=== PATIENT | male | born 1980 | race Two or more races ===

== ENCOUNTER 2017-08-12 11:30 | Emergency (ER) | payer SELFPAY ==
[~2017-08-12] VITALS: Ht 185.4 cm; Wt 59.0 kg
[~2017-08-12 11:30] MED LIST: ALBIPROI INH; ALBU90OI INH; AMOX500 PO; BENZ100A PO; CEPH500 PO; CLIN150 PO; CODGUAEL PO; CRUTCH2 USE; CRUTCH3 USE; Cortisporin Ear10 ML BOTHEARS; Cortisporin Ear10 ML RIGHTEAR; ERYT500 PO; FLUT.05NI; HYDACE10B PO; HYDACE5 PO; HYDGUAL120 PO; IBUP200; IBUP200 PO; IBUP600; IBUP800 PO; META800 PO; MIRT15; MUPI2TO TOP; Miralax17 GM PO; NAPR500 PO; NEOPOLHCSU OT; NEOPOLHCSU RIGHTEAR; NYQUIL; NYST100TC TOP; OXYACE5T PO; PENVK500 PO; PRED20 PO; PRED5; PROM25 PO; RXNEOPOLHC AU; SUBOXONE 12 MG1 EACH SL; SULTRIDS PO; TRAM50 PO; Ultram50 MG PO; ZINC15G; Zithromax250 MG PO; Zofran Odt4 MG SL
[2017-08-12] MEDS ORDERED: Cheratussin AC118 ML PO (13:07)
[2017-08-12] MEDS ORDERED: ALBU90OI INH (13:15)
== END 2017-08-12 13:22 | disposition home or self-care (01) ==
LOC: ER 11:30
DX: J06.9 Acute upper respiratory infection, unspecified (principal); J45.909 Unspecified asthma, uncomplicated; F17.200 Nicotine dependence, unspecified, uncomplicated; Z88.8 Allergy status to other drugs, medicaments and biological substances; Z79.899 Other long term (current) drug therapy
CPT/HCPCS: 71046; 99283

== ENCOUNTER 2017-10-13 16:45 | Emergency (ER) | payer SELFPAY ==
[~2017-10-13] VITALS: Ht 188 cm; Wt 62.1 kg
[~2017-10-13 16:45] MED LIST changes: +Cheratussin AC118 ML PO
[2017-10-13] MEDS ORDERED: MIRT30 PO (17:09)
[2017-10-13] MEDS ORDERED: Robaxin500 MG PO (17:35)
[2017-10-13] MEDS ORDERED: NAPR550 PO (17:35)
== END 2017-10-13 17:42 | disposition home or self-care (01) ==
LOC: ER 16:45
DX: S20.211A Contusion of right front wall of thorax, initial encounter (principal); E03.9 Hypothyroidism, unspecified; F17.210 Nicotine dependence, cigarettes, uncomplicated; Z88.8 Allergy status to other drugs, medicaments and biological substances; Z79.899 Other long term (current) drug therapy; W51.XXXA Accidental striking against or bumped into by another person, initial encounter
CPT/HCPCS: 71101; 99283

== ENCOUNTER 2017-10-20 10:02 | Emergency (ER) | payer SELFPAY ==
[~2017-10-20] VITALS: Ht 185.4 cm; Wt 68.0 kg
[~2017-10-20 10:02] MED LIST changes: +MIRT30 PO; +NAPR550 PO; +Robaxin500 MG PO
[2017-10-20] MEDS ORDERED: KETO10 PO (10:49)
== END 2017-10-20 11:11 | disposition home or self-care (01) ==
LOC: ER 10:02
DX: S20.211A Contusion of right front wall of thorax, initial encounter (principal); F17.200 Nicotine dependence, unspecified, uncomplicated; Z88.8 Allergy status to other drugs, medicaments and biological substances; Z79.899 Other long term (current) drug therapy; X58.XXXA Exposure to other specified factors, initial encounter
CPT/HCPCS: 96372; 99283; J1885

== ENCOUNTER 2017-12-18 08:49 | Emergency (ER) | payer SELFPAY ==
[~2017-12-18] VITALS: Ht 185.4 cm; Wt 68.0 kg
[~2017-12-18 08:49] MED LIST changes: +KETO10 PO
[2017-12-18] MEDS ORDERED: SUBOXONE 8 MG-1 EACH SL (09:35)
[2017-12-18] MEDS ORDERED: ALBU90OI INH (10:14)
== END 2017-12-18 10:26 | disposition home or self-care (01) ==
LOC: ER 08:49
DX: J45.909 Unspecified asthma, uncomplicated (principal); Z77.22 Contact with and (suspected) exposure to environmental tobacco smoke (acute) (chronic); Z88.8 Allergy status to other drugs, medicaments and biological substances; Z79.899 Other long term (current) drug therapy; F17.200 Nicotine dependence, unspecified, uncomplicated
CPT/HCPCS: 71046; 94640; 99283-25; J1100

== ENCOUNTER 2017-12-27 09:44 | Emergency (ER) | payer SELFPAY ==
[~2017-12-27] VITALS: Ht 185.4 cm; Wt 70.3 kg
[~2017-12-27 09:44] MED LIST changes: +SUBOXONE 8 MG-1 EACH SL
[2017-12-27] MEDS ORDERED: Prednisone50 MG PO (13:22)
[2017-12-27] MEDS ORDERED: BUDE6HFA INH (13:23)
== END 2017-12-27 13:31 | disposition home or self-care (01) ==
LOC: ER 09:44
DX: J40 Bronchitis, not specified as acute or chronic (principal); F17.200 Nicotine dependence, unspecified, uncomplicated; Z88.8 Allergy status to other drugs, medicaments and biological substances; Z79.899 Other long term (current) drug therapy
CPT/HCPCS: 94644; 99283-25

== ENCOUNTER 2018-08-09 08:49 | Emergency (ER) | payer SELFPAY ==
[~2018-08-09] VITALS: Ht 185.4 cm; Wt 63.5 kg
[~2018-08-09 08:49] MED LIST changes: +BUDE6HFA INH; +Prednisone50 MG PO
[2018-08-09] MEDS ORDERED: ONDA4ODT MM (10:34)
== END 2018-08-09 10:37 | disposition home or self-care (01) ==
LOC: ER 08:49
DX: A08.4 Viral intestinal infection, unspecified (principal); F17.210 Nicotine dependence, cigarettes, uncomplicated; Z88.5 Allergy status to narcotic agent
CPT/HCPCS: 99282

== ENCOUNTER 2018-08-28 09:34 | Emergency (ER) | payer SELFPAY ==
[~2018-08-28] VITALS: Ht 182.9 cm; Wt 62.1 kg
[~2018-08-28 09:34] MED LIST changes: +ONDA4ODT MM
[2018-08-28] MEDS ORDERED: Robaxin500 MG PO (11:06)
[2018-08-28] MEDS ORDERED: KETO10 PO (11:06)
== END 2018-08-28 11:21 | disposition home or self-care (01) ==
LOC: ER 09:34
DX: M62.830 Muscle spasm of back (principal); F17.210 Nicotine dependence, cigarettes, uncomplicated; Z88.5 Allergy status to narcotic agent
CPT/HCPCS: 72100; 96372; 99283-25; J1885

== ENCOUNTER 2018-09-16 09:46 | Emergency (ER) | payer SELFPAY ==
[~2018-09-16] VITALS: Ht 185.4 cm; Wt 65.8 kg
[2018-09-16] MEDS ORDERED: CYCL10 PO (11:38)
== END 2018-09-16 11:43 | disposition home or self-care (01) ==
LOC: ER 09:46
DX: M25.552 Pain in left hip (principal); M54.5 Low back pain; Z88.5 Allergy status to narcotic agent; Z88.8 Allergy status to other drugs, medicaments and biological substances; Z79.899 Other long term (current) drug therapy; Z88.6 Allergy status to analgesic agent; F17.210 Nicotine dependence, cigarettes, uncomplicated
CPT/HCPCS: 72100; 72170; 96372; 99283-25; J1885

== ENCOUNTER 2019-03-03 09:48 | Emergency (ER) | payer SELFPAY ==
[~2019-03-03] VITALS: Ht 182.9 cm; Wt 65.8 kg
[~2019-03-03 09:48] MED LIST changes: +CYCL10 PO; +Nicoderm Cq1 EACH TOP; +Prednisone20 MG PO
[2019-03-03] MEDS ORDERED: BUPRENORPHINE HC8 MG SL (10:02)
[2019-03-03] MEDS ORDERED: HYDR1TAB94 PO ×2 (10:07→10:32)
[2019-03-03] MEDS ORDERED: LIDO700A20 TOP ×2 (10:07→10:30)
[2019-03-03] MEDS ORDERED: Zovirax800 MG PO ×2 (10:07→10:32)
[2019-03-03] MEDS ORDERED: METPRE4DP PO ×2 (10:07→10:30)
== END 2019-03-03 10:45 | disposition home or self-care (01) ==
LOC: ER 09:48
DX: B02.9 Zoster without complications (principal); F17.210 Nicotine dependence, cigarettes, uncomplicated; Z88.5 Allergy status to narcotic agent; Z88.1 Allergy status to other antibiotic agents; Z79.899 Other long term (current) drug therapy
CPT/HCPCS: 96372; 99283-25; J3301

== ENCOUNTER 2019-04-01 10:10 | Emergency (ER) | payer SELFPAY ==
[~2019-04-01] VITALS: Ht 182.9 cm; Wt 52.2 kg
[~2019-04-01 10:10] MED LIST changes: +BUPRENORPHINE HC8 MG SL; +HYDR1TAB94 PO; +LIDO700A20 TOP; +METPRE4DP PO; +Zovirax800 MG PO
[2019-04-01 10:44] LABS: BASOPHILS ABSOLUTE AUTO 0.04 K/mm3 (0.00-0.23); BASOPHILS PERCENT AUTO 1 % (0-2); EOSINOPHILS ABSOLUTE AUTO 0.08 K/mm3 (0.00-0.68); EOSINOPHILS PERCENT AUTO 1 % (0-6); Hematocrit 42.8 % (37.0-53.0); Hemoglobin 14.3 g/dL (13.5-17.5); IMMATURE GRAN ABSOLUTE AUTO 0.03 K/mm3 (0.00-0.10); IMMATURE GRAN PERCENT AUTO 0 % (0-1); LYMPHOCYTES ABSOLUTE AUTO 1.32 K/mm3 (0.84-5.20); LYMPHOCYTES PERCENT AUTO 18 % (21-46); MONOCYTES ABSOLUTE AUTO 0.61 K/mm3 (0.16-1.47); MONOCYTES PERCENT AUTO 8 % (4-13); Mean Corpuscular HGB 31.6 pg (26.0-34.0); Mean Corpuscular HGB Conc 33.4 g/dL (31.5-36.5); Mean Corpuscular Volume 95 fL (80-100); NEUTROPHILS ABSOLUTE AUTO 5.26 K/mm3 (1.96-9.15); NEUTROPHILS PERCENT AUTO 72 % (41-73); Platelet Count 168 K/mm3 (150-400); RDW Coefficient Variation 12.6 % (11.7-14.2); RDW Standard Deviation 43.4 fL (35.1-46.3); Red Blood Cell Count 4.53 M/mm3 (4.30-5.90); White Blood Cell Count 7.34 K/mm3 (4.00-11.30)
[2019-04-01 11:02] LABS: Alanine Aminotransfer (ALT/SGP 37 U/L (12-78); Albumin, Blood 4.3 g/dL (3.4-5.0); Albumin/Globulin Ratio 1.3 (0.8-1.8); Alk Phos 46 U/L (50-136); Anion Gap 7 mmol/L (6-16); Aspartate Aminotrans (AST/SGOT 23 U/L (12-37); Bilirubin, Total 0.5 mg/dL (0.1-1.0); Blood Urea Nitrogen 13 mg/dL (8-24); Bun/Creatinine Ratio 12.3 (12.0-20.0); CO2, Blood 25 mmol/L (21-32); Calcium, Blood 8.6 mg/dL (8.5-10.1); Chloride, Blood 111 mmol/L (98-108); Creatinine, Blood 1.06 mg/dL (0.60-1.20); Globulin, Blood 3.2 g/dL (2.2-4.0); Glomerular Filtration Rate >60 (60-); Glucose, Blood 115 mg/dL (70-99); Potassium, Blood 3.7 mmol/L (3.5-5.5); Sodium, Blood 143 mmol/L (136-145); Total Protein, Blood 7.5 g/dL (6.4-8.2)
[2019-04-01 12:02] LABS: Free Thyroxine 1.18 ng/dL (0.70-1.60)
[2019-04-01 12:04] LABS: Thyroid Stimulating Hormone 0.781 uIU/mL (0.360-4.800)
[2019-04-01] MEDS ORDERED: Prednisone20 MG PO (13:53)
[2019-04-02 07:08] LABS: HIV SCREEN 4TH GENERATION WRFX Non Reactive (Non Reactive)
== END 2019-04-01 14:07 | disposition home or self-care (01) ==
LOC: ER 10:10
PROVIDERS: Emergency Medicine
DX: R63.4 Abnormal weight loss (principal); Z88.5 Allergy status to narcotic agent; Z88.8 Allergy status to other drugs, medicaments and biological substances; Z79.899 Other long term (current) drug therapy; Z79.52 Long term (current) use of systemic steroids; F17.210 Nicotine dependence, cigarettes, uncomplicated
CPT/HCPCS: 36415; 71046; 80053; 84439; 84443; 85025; 87389; 93005; 93010; 99284-25; J7030

== ENCOUNTER 2019-04-12 16:52 | Emergency (ER) | payer SELFPAY ==
[~2019-04-12] VITALS: Ht 182.9 cm; Wt 54.4 kg
[2019-04-12] MEDS ORDERED: Polytrim Eye Dr10 ML TOP (18:07)
== END 2019-04-12 18:13 | disposition home or self-care (01) ==
LOC: ER 16:52
DX: H60.93 Unspecified otitis externa, bilateral (principal); H69.93 Unspecified Eustachian tube disorder, bilateral; H61.21 Impacted cerumen, right ear; Z88.5 Allergy status to narcotic agent; F17.210 Nicotine dependence, cigarettes, uncomplicated
CPT/HCPCS: 69210; 99282-25

== ENCOUNTER 2019-06-21 10:46 | Emergency (ER) | payer SELFPAY ==
[~2019-06-21] VITALS: Ht 182.9 cm; Wt 65.8 kg
[~2019-06-21 10:46] MED LIST changes: +Polytrim Eye Dr10 ML TOP
[2019-06-21] MEDS ORDERED: Amoxicillin500 MG PO ×2 (11:59→12:54)
[2019-06-21] MEDS ORDERED: Floxin10 ML RIGHTEAR (12:52)
== END 2019-06-21 12:53 | disposition home or self-care (01) ==
LOC: ER 10:46
DX: J02.9 Acute pharyngitis, unspecified (principal); F17.210 Nicotine dependence, cigarettes, uncomplicated; Z88.5 Allergy status to narcotic agent; Z88.8 Allergy status to other drugs, medicaments and biological substances; Z79.899 Other long term (current) drug therapy
CPT/HCPCS: 87081; 87430; 99283

== ENCOUNTER 2019-06-29 08:14 | Emergency (ER) | payer SELFPAY ==
[~2019-06-29] VITALS: Ht 182.9 cm; Wt 65.8 kg
[~2019-06-29 08:14] MED LIST changes: +Amoxicillin500 MG PO; +Floxin10 ML RIGHTEAR
[2019-07-02] MEDS ORDERED: NYST237S MT (12:27)
[2019-07-02] MEDS ORDERED: ONDA4ODT MM (12:27)
== END 2019-06-29 08:55 | disposition home or self-care (01) ==
LOC: ER 08:14
DX: Z77.098 Contact with and (suspected) exposure to other hazardous, chiefly nonmedicinal, chemicals (principal)
CPT/HCPCS: 99283

== ENCOUNTER 2019-08-28 14:32 | Emergency (ER) | payer SELFPAY ==
[~2019-08-28] VITALS: Ht 185.4 cm; Wt 63.5 kg
[~2019-08-28 14:32] MED LIST changes: +NYST237S MT; +ONDANSETRON ODT 4 MG; +Pseudoephedrine30 MG PO
[2019-08-28] MEDS ORDERED: KETO10 PO (16:00)
[2019-08-28] MEDS ORDERED: Robaxin-750750 MG PO (16:00)
== END 2019-08-28 16:09 | disposition home or self-care (01) ==
LOC: ER 14:32
DX: R07.89 Other chest pain (principal); J44.9 Chronic obstructive pulmonary disease, unspecified; Z88.5 Allergy status to narcotic agent; Z88.8 Allergy status to other drugs, medicaments and biological substances; Z79.899 Other long term (current) drug therapy
CPT/HCPCS: 71046; 93005; 93010; 96372; 99284-25; J1885

== ENCOUNTER 2020-04-18 08:02 | Emergency (ER) | payer OTHER ==
[~2020-04-18] VITALS: Ht 185.4 cm; Wt 59.0 kg
[~2020-04-18 08:02] MED LIST changes: +Robaxin-750750 MG PO
[2020-04-18] MEDS ORDERED: Norco 10-325 T1 EACH PO (09:40)
[2020-04-18] MEDS ORDERED: IBUP400 PO (09:40)
== END 2020-04-18 10:01 | disposition home or self-care (01) ==
LOC: ER 08:02
DX: R07.81 Pleurodynia (principal); J44.9 Chronic obstructive pulmonary disease, unspecified; F17.210 Nicotine dependence, cigarettes, uncomplicated; Z88.5 Allergy status to narcotic agent; Z88.8 Allergy status to other drugs, medicaments and biological substances; Z88.6 Allergy status to analgesic agent; Z79.891 Long term (current) use of opiate analgesic
CPT/HCPCS: 71046; 99283-25

== ENCOUNTER → 2020-06-12 | Outpatient (CLI) | payer OTHER ==
[~2020-06-12] MED LIST changes: +DICY20 PO; +IBUP400 PO; +NAPROXEN250 M1 PO; +Norco 10-325 T1 EACH PO; +SYMBICORT 160-4.6 GM; +ZENPEP DR 10,01 EACH PO
== END | disposition home or self-care (01) ==
LOC: LAB SHORT 13:15 → PLD 13:15
DX: J02.9 Acute pharyngitis, unspecified (principal)
CPT/HCPCS: 87081

== ENCOUNTER 2020-06-20 10:09 | Emergency (ER) | payer OTHER ==
[~2020-06-20] VITALS: Ht 185.4 cm; Wt 54.4 kg
[~2020-06-20 10:09] MED LIST changes: -DICY20 PO; -NAPROXEN250 M1 PO; -SYMBICORT 160-4.6 GM; -ZENPEP DR 10,01 EACH PO
[2020-06-20 10:37] LABS: BASOPHILS ABSOLUTE AUTO 0.05 K/mm3 (0.00-0.23); BASOPHILS PERCENT AUTO 1 % (0-2); EOSINOPHILS ABSOLUTE AUTO 0.62 K/mm3 (0.00-0.68); EOSINOPHILS PERCENT AUTO 7 % (0-6); Hematocrit 45.1 % (37.0-53.0); Hemoglobin 15.2 g/dL (13.5-17.5); IMMATURE GRAN ABSOLUTE AUTO 0.05 K/mm3 (0.00-0.10); IMMATURE GRAN PERCENT AUTO 1 % (0-1); LYMPHOCYTES ABSOLUTE AUTO 1.31 K/mm3 (0.84-5.20); LYMPHOCYTES PERCENT AUTO 14 % (21-46); MONOCYTES ABSOLUTE AUTO 0.74 K/mm3 (0.16-1.47); MONOCYTES PERCENT AUTO 8 % (4-13); Mean Corpuscular HGB Conc 33.7 g/dL (31.5-36.5); Mean Corpuscular Volume 95 fL (80-100); Mean Platelet Volume 10.2 fL (9.1-12.4); NEUTROPHILS ABSOLUTE AUTO 6.33 K/mm3 (1.96-9.15); NEUTROPHILS PERCENT AUTO 70 % (41-73); Platelet Count 149 K/mm3 (150-400); RDW Standard Deviation 42.1 fL (35.1-46.3); Red Blood Cell Count 4.75 M/mm3 (4.30-5.90)
[2020-06-20 10:58] LABS: Alanine Aminotransfer (ALT/SGP 38 U/L (12-78); Albumin, Blood 4.7 g/dL (3.4-5.0); Albumin/Globulin Ratio 1.3 (0.8-1.8); Alk Phos 68 U/L (50-136); Anion Gap 5 mmol/L (6-16); Aspartate Aminotrans (AST/SGOT 28 U/L (12-37); Bilirubin, Total 0.3 mg/dL (0.1-1.0); Blood Urea Nitrogen 12 mg/dL (8-24); Bun/Creatinine Ratio 13.1 (12.0-20.0); CO2, Blood 27 mmol/L (21-32); Calcium, Blood 9.3 mg/dL (8.5-10.1); Chloride, Blood 107 mmol/L (98-108); Creatinine, Blood 0.91 mg/dL (0.60-1.20); Globulin, Blood 3.5 g/dL (2.2-4.0); Glomerular Filtration Rate >60 (60-); Glucose, Blood 99 mg/dL (70-99); Potassium, Blood 3.6 mmol/L (3.5-5.5); Sodium, Blood 139 mmol/L (136-145); Total Protein, Blood 8.2 g/dL (6.4-8.2)
[2020-06-20 11:04] LABS: Source, Urine Clean Catch
[2020-06-20 11:21] LABS: Appearance, Urine Hazy (Clear); Bacteria Rare /hpf; Bilirubin, Urine Neg (Neg); Blood, Urine Neg (Neg); Color, Urine Yellow (P-Yellow); Glucose Qualitative, Urine Neg (Neg); Ketones, Urine 1+ (Neg); Leukocyte Esterase, Urine 1+ (Neg); Nitrite, Urine Neg (Neg); Protein, Urine 2+ (Neg); Red Blood Cells, Urine Not Seen /hpf (0-2); Specific Gravity, Urine 1.025 (1.003-1.022); Squamous Epithelial Cells Rare /hpf (Few); Urobilinogen, Urine NORM (Normal); White Blood Cells, Urine 0-2 /hpf (0-5)
[2020-06-20] MEDS ORDERED: DICY20 PO (13:38)
[2020-06-20] MEDS ORDERED: PROM25 PO (13:38)
== END 2020-06-20 13:44 | disposition home or self-care (01) ==
LOC: ER 10:09
PROVIDERS: Emergency Medicine
DX: R11.2 Nausea with vomiting, unspecified (principal); R10.9 Unspecified abdominal pain; G89.29 Other chronic pain; J44.9 Chronic obstructive pulmonary disease, unspecified; F17.210 Nicotine dependence, cigarettes, uncomplicated; Z88.5 Allergy status to narcotic agent; Z88.6 Allergy status to analgesic agent; Z79.891 Long term (current) use of opiate analgesic
CPT/HCPCS: 36415; 80053; 81001; 83690; 85025; 87086; 96374; 99284-25; J2550; J7120

== ENCOUNTER 2020-08-09 15:15 | Emergency (ER) | payer OTHER ==
[~2020-08-09] VITALS: Ht 182.9 cm; Wt 53.1 kg
[~2020-08-09 15:15] MED LIST changes: +DICY20 PO
[2020-08-09 15:51] LABS: BASOPHILS ABSOLUTE AUTO 0.05 K/mm3 (0.00-0.23); BASOPHILS PERCENT AUTO 1 % (0-2); EOSINOPHILS ABSOLUTE AUTO 0.34 K/mm3 (0.00-0.68); EOSINOPHILS PERCENT AUTO 5 % (0-6); Hematocrit 47.5 % (37.0-53.0); Hemoglobin 16.5 g/dL (13.5-17.5); IMMATURE GRAN ABSOLUTE AUTO 0.04 K/mm3 (0.00-0.10); IMMATURE GRAN PERCENT AUTO 1 % (0-1); LYMPHOCYTES ABSOLUTE AUTO 1.59 K/mm3 (0.84-5.20); LYMPHOCYTES PERCENT AUTO 23 % (21-46); MONOCYTES ABSOLUTE AUTO 0.51 K/mm3 (0.16-1.47); MONOCYTES PERCENT AUTO 7 % (4-13); Mean Corpuscular HGB 31.5 pg (26.0-34.0); Mean Corpuscular HGB Conc 34.7 g/dL (31.5-36.5); Mean Corpuscular Volume 91 fL (80-100); Mean Platelet Volume 10.6 fL (9.1-12.4); NEUTROPHILS ABSOLUTE AUTO 4.36 K/mm3 (1.96-9.15); NEUTROPHILS PERCENT AUTO 63 % (41-73); Platelet Count 152 K/mm3 (150-400); RDW Coefficient Variation 11.9 % (11.7-14.2); RDW Standard Deviation 40.1 fL (35.1-46.3); Red Blood Cell Count 5.23 M/mm3 (4.30-5.90); White Blood Cell Count 6.89 K/mm3 (4.00-11.30)
[2020-08-09] MEDS ORDERED: ONDA4ODT MM (16:12)
[2020-08-09] MEDS ORDERED: ZENPEP DR 10,01 EACH PO (16:12)
[2020-08-09 16:16] LABS: Source, Urine Clean Catch
[2020-08-09 16:24] LABS: Appearance, Urine Hazy (Clear); Bilirubin, Urine Neg (Neg); Blood, Urine Neg (Neg); Color, Urine Yellow (P-Yellow); Glucose Qualitative, Urine Neg (Neg); Ketones, Urine Neg (Neg); Leukocyte Esterase, Urine Neg (Neg); Nitrite, Urine Neg (Neg); Protein, Urine 1+ (Neg); Specific Gravity, Urine 1.015 (1.003-1.022); Urobilinogen, Urine NORM (Normal); pH, Urine 6.5 (5.0-8.0)
[2020-08-09 16:35] LABS: Bacteria Many /hpf; Red Blood Cells, Urine 0-2 /hpf (0-2); Squamous Epithelial Cells Not Seen /hpf (Few); White Blood Cells, Urine 0-2 /hpf (0-5)
[2020-08-09 16:36] LABS: Calcium Oxalate Crystals Rare /hpf
[2020-08-09 17:05] LABS: Alanine Aminotransfer (ALT/SGP 28 U/L (12-78); Albumin, Blood 3.7 g/dL (3.4-5.0); Albumin/Globulin Ratio 1.3 (0.8-1.8); Alk Phos 48 U/L (50-136); Anion Gap 2 mmol/L (6-16); Aspartate Aminotrans (AST/SGOT 16 U/L (12-37); Bilirubin, Total 0.3 mg/dL (0.1-1.0); Blood Urea Nitrogen 10 mg/dL (8-24); Bun/Creatinine Ratio 11.2 (12.0-20.0); CO2, Blood 30 mmol/L (21-32); Calcium, Blood 8.8 mg/dL (8.5-10.1); Chloride, Blood 106 mmol/L (98-108); Globulin, Blood 2.9 g/dL (2.2-4.0); Glomerular Filtration Rate >60 (60-); Glucose, Blood 82 mg/dL (70-99); Potassium, Blood 3.4 mmol/L (3.5-5.5); Sodium, Blood 138 mmol/L (136-145); Total Protein, Blood 6.6 g/dL (6.4-8.2)
[2020-08-09] MEDS ORDERED: NAPROXEN250 M1 PO (17:52)
== END 2020-08-09 18:17 | disposition home or self-care (01) ==
LOC: ER 15:15
PROVIDERS: Physician Assistant
DX: N20.2 Calculus of kidney with calculus of ureter (principal); J44.9 Chronic obstructive pulmonary disease, unspecified; F17.210 Nicotine dependence, cigarettes, uncomplicated; Z88.5 Allergy status to narcotic agent; Z88.8 Allergy status to other drugs, medicaments and biological substances; Z88.6 Allergy status to analgesic agent; Z79.899 Other long term (current) drug therapy
CPT/HCPCS: 36415; 74177; 80053; 81001; 83690; 85025; 87086; 96374-59; 96375; 99284-25; J1630; J1885; Q9967

== ENCOUNTER 2020-08-27 08:33 | Day surgery (SDC) | payer OTHER ==
[~2020-08-27] VITALS: Ht 182.9 cm; Wt 55.7 kg
[~2020-08-27 08:33] MED LIST changes: +NAPROXEN250 M1 PO; +ZENPEP DR 10,01 EACH PO
[2020-08-27] MEDS ORDERED: SYMBICORT 160-4.6 GM (08:58)
--- NOTE | 2020-08-27 10:50 | NUR ---
08/27/20 1050 Destiny Cantu LATE ENTRY PATIENT HAD POOR PREP, WAS ONL ABLE TO REACH THE MID TRANSVERSE COLON. PROCEDURE ABORTED.
== END 2020-08-27 10:43 | disposition home or self-care (01) ==
LOC: ORSCSDS 08:33
PROVIDERS: Internal Medicine Gastroenterology
PROC: 0DJD8ZZ Inspection of Lower Intestinal Tract, Via Natural or Artificial Opening Endoscopic (ICD-10-PCS; principal; 2020-08-27 09:45)
PROC: 0DB68ZX Excision of Stomach, Via Natural or Artificial Opening Endoscopic, Diagnostic (ICD-10-PCS; principal; 2020-08-27 09:45)
PROC: 0DB98ZX Excision of Duodenum, Via Natural or Artificial Opening Endoscopic, Diagnostic (ICD-10-PCS; principal; 2020-08-27 09:45)
DX: R63.4 Abnormal weight loss (principal); R10.84 Generalized abdominal pain; R53.82 Chronic fatigue, unspecified; R11.2 Nausea with vomiting, unspecified; R53.1 Weakness; R19.4 Change in bowel habit; F17.210 Nicotine dependence, cigarettes, uncomplicated; Z79.899 Other long term (current) drug therapy
CPT/HCPCS: 88305; 88342; J2250; J2704; J7120

== ENCOUNTER 2021-03-05 08:52 | Emergency (ER) | payer OTHER ==
[~2021-03-05] VITALS: Ht 182.9 cm; Wt 54.4 kg
[~2021-03-05 08:52] MED LIST changes: +SYMBICORT 160-4.6 GM
[2021-03-05] MEDS ORDERED: AZIT250 PO (09:05)
[2021-03-05] MEDS ORDERED: BUPRENORPHIN-N1 EAC1 SL (09:06)
== END 2021-03-05 10:12 | disposition home or self-care (01) ==
LOC: ER 08:52
DX: H60.93 Unspecified otitis externa, bilateral (principal); J44.9 Chronic obstructive pulmonary disease, unspecified; Z88.5 Allergy status to narcotic agent; Z88.8 Allergy status to other drugs, medicaments and biological substances; Z79.2 Long term (current) use of antibiotics; F17.210 Nicotine dependence, cigarettes, uncomplicated
CPT/HCPCS: 99282; A9270

== ENCOUNTER 2021-04-08 12:13 | Emergency (ER) | payer OTHER ==
[~2021-04-08] VITALS: Ht 182.9 cm; Wt 56.7 kg
[~2021-04-08 12:13] MED LIST changes: +AZIT250 PO; +BUPRENORPHIN-N1 EAC1 SL
[2021-04-08] MEDS ORDERED: AZIT250 PO (13:27)
[2021-04-08] MEDS ORDERED: PRED20 PO (13:28)
[2021-04-08] MEDS ORDERED: DOXY100 PO (13:48)
== END 2021-04-08 14:40 | disposition home or self-care (01) ==
LOC: ER 12:13
DX: J44.1 Chronic obstructive pulmonary disease with (acute) exacerbation (principal); B34.9 Viral infection, unspecified; Z20.822 Contact with and (suspected) exposure to COVID-19; F17.210 Nicotine dependence, cigarettes, uncomplicated; Z88.5 Allergy status to narcotic agent; Z88.8 Allergy status to other drugs, medicaments and biological substances; Z79.899 Other long term (current) drug therapy
CPT/HCPCS: 71045; 87070; 87077; 87186; 87205; 94640; 94664; 96372; 99284-25; A9270; J2930

== ENCOUNTER → 2021-04-16 | Emergency (ER) | payer OTHER ==
[~2021-04-16] MED LIST changes: +DOXY100 PO
== END ==
LOC: ER 08:53
DX: Z53.21 Procedure and treatment not carried out due to patient leaving prior to being seen by health care provider (principal)

== ENCOUNTER → 2021-09-09 | Outpatient (CLI) | payer OTHER ==
[2021-09-10 20:00] LABS: Adenovirus F 40/41 Not Detected (NOT DETECT); Astrovirus Not Detected (NOT DETECT); Campylobacter Sp Not Detected (NOT DETECT); Cryptosporidium Not Detected (NOT DETECT); Cyclospora Cayetanensis Not Detected (NOT DETECT); E. Coli O157 Not Detected (NOT DETECT); Entamoeba Histolytica Not Detected (NOT DETECT); Enteroaggregative E. coli-EAEC Not Detected (NOT DETECT); Enteropathogenic E. coli-EPEC Not Detected (NOT DETECT); Enterotoxigenic E. coli-ETEC Not Detected (NOT DETECT); Giardia Lamblia Not Detected (NOT DETECT); Norovirus GI/GII Not Detected (NOT DETECT); Plesiomonas Shigelloides Not Detected (NOT DETECT); Rotavirus A Not Detected (NOT DETECT); Salmonella Sp Not Detected (NOT DETECT); Sapovirus Not Detected (NOT DETECT); Shiga Toxin-prod E. coli-STEC Not Detected (NOT DETECT); Shigella/Enteroin E. coli-EIEC Not Detected (NOT DETECT); Vibrio Cholerae Not Detected (NOT DETECT); Vibrio Sp Not Detected (NOT DETECT); Yersinia Enterocolitica Not Detected (NOT DETECT)
== END | disposition home or self-care (01) ==
LOC: LAB 15:42 → LAB SHORT 15:42
PROVIDERS: Family Medicine
DX: K52.9 Noninfective gastroenteritis and colitis, unspecified (principal)
CPT/HCPCS: 87507

== ENCOUNTER 2021-09-14 11:56 | Day surgery (SDC) | payer OTHER ==
[~2021-09-14] VITALS: Ht 182.9 cm; Wt 57.8 kg
== END 2021-09-14 15:37 | disposition home or self-care (01) ==
LOC: ORSCSDS 11:56
PROVIDERS: Internal Medicine Gastroenterology
PROC: 0DBE8ZX Excision of Large Intestine, Via Natural or Artificial Opening Endoscopic, Diagnostic (ICD-10-PCS; principal; 2021-09-14 13:30)
DX: R63.4 Abnormal weight loss (principal); R10.84 Generalized abdominal pain; R11.2 Nausea with vomiting, unspecified; K59.09 Other constipation; K64.8 Other hemorrhoids; Z68.1 Body mass index [BMI] 19.9 or less, adult; F17.210 Nicotine dependence, cigarettes, uncomplicated; Z79.899 Other long term (current) drug therapy
CPT/HCPCS: 88305; J0330; J0461; J2250; J2405; J2704; J7120

== ENCOUNTER → 2021-12-10 | Outpatient (CLI) | payer OTHER | END | disposition home or self-care (01) | LOC: LAB SHORT 09:30 → LAB 09:30 | DX: K58.9 Irritable bowel syndrome, unspecified (principal) | CPT/HCPCS: 83993 ==

== ENCOUNTER → 2022-12-02 | Outpatient (CLI) | payer OTHER ==
[2022-12-02 15:36] LABS: Campylobacter Sp Not Detected (NOT DETECT); Enteroaggregative E. coli-EAEC Not Detected (NOT DETECT); Enteropathogenic E. coli-EPEC Not Detected (NOT DETECT); Enterotoxigenic E. coli-ETEC Not Detected (NOT DETECT); Plesiomonas Shigelloides Not Detected (NOT DETECT); Salmonella Sp Not Detected (NOT DETECT); Shiga Toxin-prod E. coli-STEC Not Detected (NOT DETECT); Vibrio Cholerae Not Detected (NOT DETECT); Vibrio Sp Not Detected (NOT DETECT); Yersinia Enterocolitica Not Detected (NOT DETECT)
[2022-12-02 15:37] LABS: Adenovirus F 40/41 Not Detected (NOT DETECT); Astrovirus Not Detected (NOT DETECT); Cryptosporidium Not Detected (NOT DETECT); Cyclospora Cayetanensis Not Detected (NOT DETECT); E. Coli O157 Not Detected (NOT DETECT); Entamoeba Histolytica Not Detected (NOT DETECT); Giardia Lamblia Not Detected (NOT DETECT); Norovirus GI/GII Not Detected (NOT DETECT); Rotavirus A Not Detected (NOT DETECT); Sapovirus Not Detected (NOT DETECT); Shigella/Enteroin E. coli-EIEC Not Detected (NOT DETECT)
== END | disposition home or self-care (01) ==
LOC: LAB 09:06 → LAB SHORT 09:06
PROVIDERS: Physician Assistant
DX: R19.7 Diarrhea, unspecified (principal)
CPT/HCPCS: 87329; 87507

== ENCOUNTER 2023-04-12 16:39 | Emergency (ER) | payer OTHER ==
[~2023-04-12] VITALS: Ht 182.9 cm; Wt 59.0 kg
[2023-04-12 17:01] LABS: BASOPHILS ABSOLUTE AUTO 0.05 K/mm3 (0.00-0.23); BASOPHILS PERCENT AUTO 1 % (0-2); EOSINOPHILS ABSOLUTE AUTO 0.31 K/mm3 (0.00-0.68); EOSINOPHILS PERCENT AUTO 3 % (0-6); Hematocrit 42.3 % (37.0-53.0); Hemoglobin 14.9 g/dL (13.5-17.5); IMMATURE GRAN ABSOLUTE AUTO 0.03 K/mm3 (0.00-0.10); IMMATURE GRAN PERCENT AUTO 0 % (0-1); LYMPHOCYTES ABSOLUTE AUTO 2.42 K/mm3 (0.84-5.20); LYMPHOCYTES PERCENT AUTO 23 % (21-46); MONOCYTES ABSOLUTE AUTO 0.72 K/mm3 (0.16-1.47); MONOCYTES PERCENT AUTO 7 % (4-13); Mean Corpuscular HGB 32.3 pg (26.0-34.0); Mean Corpuscular HGB Conc 35.2 g/dL (31.5-36.5); Mean Corpuscular Volume 92 fL (80-100); Mean Platelet Volume 9.8 fL (9.1-12.4); NEUTROPHILS ABSOLUTE AUTO 6.85 K/mm3 (1.96-9.15); NEUTROPHILS PERCENT AUTO 66 % (41-73); Platelet Count 158 K/mm3 (150-400); RDW Coefficient Variation 12.2 % (11.7-14.2); RDW Standard Deviation 41.1 fL (35.1-46.3); Red Blood Cell Count 4.61 M/mm3 (4.30-5.90); White Blood Cell Count 10.38 K/mm3 (4.00-11.30)
[2023-04-12 17:24] LABS: Albumin, Blood 4.3 g/dL (3.4-5.0); Albumin/Globulin Ratio 1.4 (0.8-1.8); Bilirubin, Total 0.3 mg/dL (0.1-1.0); Bun/Creatinine Ratio 15.1 (12.0-20.0); Calcium, Blood 8.8 mg/dL (8.5-10.1); Creatinine, Blood 0.93 mg/dL (0.60-1.20); Globulin, Blood 3.1 g/dL (2.2-4.0); Potassium, Blood 3.5 mmol/L (3.5-5.5); Total Protein, Blood 7.4 g/dL (6.4-8.2)
[2023-04-12 18:30] LABS: Source, Urine Clean Catch
[2023-04-12 18:58] LABS: Appearance, Urine Bloody (Clear); Bilirubin, Urine Neg (Neg); Blood, Urine 5+ (Neg); Color, Urine Red (P-Yellow); Glucose Qualitative, Urine Neg (Neg); Ketones, Urine Neg (Neg); Leukocyte Esterase, Urine 1+ (Neg); Nitrite, Urine Neg (Neg); Protein, Urine 3+ (Neg); Specific Gravity, Urine 1.015 (1.003-1.022); Urobilinogen, Urine NORM (Normal); pH, Urine 6.5 (5.0-8.0)
[2023-04-12 19:01] LABS: Bacteria Mod /hpf; Hyaline Casts 0-2 /lpf (0-2); Red Blood Cells, Urine TNTC /hpf (0-2); Squamous Epithelial Cells Rare /hpf (Few)
[2023-04-12] MEDS ORDERED: CEPH500 PO (19:10)
[2023-04-12 19:23] VITALS: BP 108/78
== END 2023-04-12 19:22 | disposition home or self-care (01) ==
LOC: ER 16:39
PROVIDERS: Physician Assistant
DX: N39.0 Urinary tract infection, site not specified (principal); N20.0 Calculus of kidney; F17.210 Nicotine dependence, cigarettes, uncomplicated; Z88.5 Allergy status to narcotic agent; Z88.6 Allergy status to analgesic agent; Z88.8 Allergy status to other drugs, medicaments and biological substances
CPT/HCPCS: 74177; 80053; 81001; 85025; 87086; 96374; 99284-25; A9270; J1885; Q9967

== ENCOUNTER 2024-02-22 17:51 | Emergency (ER) | payer OTHER ==
[~2024-02-22] VITALS: Ht 182.9 cm; Wt 61.2 kg
[~2024-02-22 17:51] MED LIST changes: +AMIT50 PO; +BUPRENORPHIN-N1 EAC5 SL
[2024-02-22 18:08] VITALS: BP 115/86
[2024-02-22] MEDS ORDERED: Ketorolac Tromethamine 15mg Vial IM ONE (18:30)
== END 2024-02-22 20:07 | disposition home or self-care (01) ==
LOC: ER 17:51
DX: M54.50 Low back pain, unspecified (principal); J44.9 Chronic obstructive pulmonary disease, unspecified; F17.210 Nicotine dependence, cigarettes, uncomplicated; Z88.5 Allergy status to narcotic agent; Z88.8 Allergy status to other drugs, medicaments and biological substances; Z79.899 Other long term (current) drug therapy; V49.9XXA Car occupant (driver) (passenger) injured in unspecified traffic accident, initial encounter
CPT/HCPCS: 72100; 96372; 99284-25; J1885